=== PATIENT | female | born 1955 | race American Indian/Alaskan Native ===

== ENCOUNTER 2016-11-02 13:19 | Outpatient (CLI) | payer MEDICARE, MEDICAID ==
--- NOTE | 2016-11-03 11:17 | Mammography Report ---
RIGHT DIGITAL DIAGNOSTIC MAMMOGRAM and RIGHT BREAST ULTRASOUND: 11/02/16 13:19:00 CLINICAL: Recalled for asymmetry. COMPARISON:09/21/16 screening FINDINGS: Lateralmedial and spot compression MLO and CC views were performed. Partial effacement of the previously described upper asymmetry. A portion of it is more pronounced with a partially circumscribed margin on the lateral view. Ultrasound of the right breast (including all four quadrants and the retroareolar area) was performed. Island of benign fibroglandular structures correlate with the mammographic asymmetries. No mass or shadowing. IMPRESSION: Probably benign asymmetric right fibroglandular structures. BI-RADS CATEGORY: 3 - - Probably Benign RECOMMENDATION: Six month followup right mammogram. ACR BI-RADS MAMMOGRAPHIC CODES: 0 = Needs additional imaging evaluation; 1 = Negative; 2 = Benign; 3 = Probably benign; 4 = Suspicious; 5 = Malignant; 6 = Known biopsy-proven malignancy COMMENT: 1. Dense breast tissue, i.e., adenosis, fibrocystic changes, etc., may obscure an underlying neoplasm. 2. Approximately 10% of cancers are not detected with mammography. 3. A negative mammography report should not delay biopsy if a clinically suspicious mass is present. COMMENT: Patient follow-up letters are generated via our [employer] application.
== END 2016-11-02 13:20 | disposition home or self-care (01) ==
LOC: MAMMO 13:19
PROVIDERS: ATTEND Hospitalist
DX: N64.89 Other specified disorders of breast (principal); R92.8 Other abnormal and inconclusive findings on diagnostic imaging of breast
CPT/HCPCS: 76641; G0206

== ENCOUNTER 2018-02-20 14:33 | Emergency (ER) | payer MEDICARE ==
--- NOTE | 2018-02-20 17:09 | Emergency Department Report ---
ED Fall HPI - General Chief Complaint: Fall Stated Complaint: SHOULDER/HIP PAIN POST FALL Time Seen by Provider: 02/20/18 17:04 Source: patient Mode of arrival: Ambulatory - History of Present Illness Initial Comments: 62-year-old [place] female reports to the emergency room that she had a fall down basement steps which includes 7 stairs. Patient reports that this happened this morning. She complains of left shoulder and left hip pain and back pain. Patient denies hitting her head no loss of consciousness able to ambulate feels that her gait is off. Patient has a past medical history of breast cancer currently taking tamoxifen, hypertension, hyperlipidemia and genital herpes. Patient reports she's had a hysterectomy and appendectomy. Patient has taken no pain medication prior to arrival. MD Complaint: fall -: This afternoon Fall From: down stairs (#) (7) When Fall Occurred: 4-6 hours [employer] Fall Witnessed: no Place Fall Occurred: home Loss of Consciousness: none Prolonged Down Time?: no Symptoms Prior to Fall: none Location - Extremities: Left: Shoulder, Thigh (his pain) Severity: moderate Severity scale (0 -10): 7 Quality: aching Associated Symptoms: denies - Related Data Allergies Allergy/AdvReac Type Severity Reaction Status Date / Time codeine Allergy Swelling Unverified 09/21/16 08:41 ED Review of Systems ROS: Stated complaint: SHOULDER/HIP PAIN POST FALL Other details as noted in HPI Constitutional: denies: chills, fever Eyes: denies: eye pain, eye discharge, vision change ENT: denies: ear pain, throat pain Respiratory: denies: cough, shortness of breath, wheezing Cardiovascular: denies: chest pain, palpitations Endocrine: no symptoms reported Gastrointestinal: denies: abdominal pain, nausea, diarrhea Genitourinary: denies: urgency, dysuria, discharge Musculoskeletal: back pain, arthralgia (left hip left shoulder) Skin: denies: rash, lesions Neurological: denies: headache, weakness, paresthesias Psychiatric: denies: anxiety, depression Hematological/Lymphatic: denies: easy bleeding, easy bruising ED Past Medical Hx - Past Medical History Previous Medical History?: Yes Hx Hypertension: Yes Hx of Cancer: Yes (breast) Additional medical history: high cholesterol - Surgical History Past Surgical History?: Yes Hx Breast Surgery: Yes (lumpectomy left breast and right with right breast cancer) - Social History Smoking Status: Former Smoker Substance Use Type: Alcohol, Prescribed ED Physical Exam - General Limitations: No Limitations General appearance: alert, in no apparent distress - Head Head exam: Present: atraumatic, normocephalic - Eye Eye exam: Present: normal appearance - ENT ENT exam: Present: mucous membranes moist - Neck Neck exam: Present: normal inspection - Respiratory Respiratory exam: Present: normal lung sounds bilaterally. Absent: respiratory distress - Cardiovascular Cardiovascular Exam: Present: regular rate, normal rhythm. Absent: systolic murmur, diastolic murmur, rubs, gallop - GI/Abdominal GI/Abdominal exam: Present: soft, normal bowel sounds - Extremities Exam Extremities exam: Present: normal inspection - Expanded Lower Extremity Exam Left Hip exam: Present: full ROM Upper Leg exam: Present: normal inspection, full ROM Knee exam: Present: normal inspection, full ROM Lower Leg exam: Present: normal inspection, full ROM Ankle exam: Present: normal inspection, full ROM Foot/Toe exam: Present: normal inspection, full ROM Neuro vascular tendon exam: Present: no vascular compromise - Back Exam Back exam: Present: normal inspection - Expanded Back Exam Expanded Back exam: Sciatic Notch Tenderness: Left, Positive Straight Leg Raise: Left - Neurological Exam Neurological exam: Present: alert, oriented X3 - Psychiatric Psychiatric exam: Present: normal affect, normal mood - Skin Skin exam: Present: warm, dry, intact, normal color. Absent: rash ED Course Vital Signs 02/20/18 15:22 Temperature 98.6 F Pulse Rate 73 Respiratory 18 Rate Blood Pressure 158/94 O2 Sat by Pulse 98 Oximetry ED Medical Decision Making - Medical Decision Making Patient's been evaluated by this provider fast track. I discussed the patient we will go ahead and x-ray her left hip and pelvis. Patient has a history of breast cancers currently on tamoxifen one to be sure it is not a hairline fracture that could result to her pain. Patient reports that she did take ibuprofen at home she just wants to be sure there is nothing acutely wrong with her. Critical care attestation.: If time is entered above; I have spent that time in minutes in the direct care of this critically ill patient, excluding procedure time. ED Disposition Clinical Impression: Fall (on) (from) other stairs and steps, initial encounter, Pain, arm, left Back pain, acute Qualifiers: Back pain location: low back pain Back pain laterality: left Sciatica presence : without sciatica Qualified Code(s): M54.5 - Low back pain Disposition: DC-01 TO HOME OR SELFCARE Is pt being admited?: No Does the pt Need Aspirin: No Condition: Stable Instructions: Fall Prevention (ED), Fall Prevention for Older Adults (ED), Acute Low Back Pain (ED) Additional Instructions: Please take Motrin you have at home for pain. All x-rays were negative. Symptoms persist or gets worse please follow-up by her primary care provider. Referrals: PRIMARY CARE, [Primary Care Provider] - 3-5 Days Forms: Work/School Release Form(ED)
--- NOTE | 2018-02-20 18:51 | XRay Report ---
FINAL REPORT EXAM: XR PELVIS 1-2V HISTORY: fall lower back and hip pain TECHNIQUE: AP pelvis PRIORS: None. FINDINGS: No acute fractures are identified. The pubic symphysis and SI joints are intact. No evidence of hip fracture or dislocation. No bony lesions are identified. IMPRESSION: Negative no acute abnormalities seen
--- NOTE | 2018-02-20 19:38 | XRay Report ---
FINAL REPORT EXAM: XR SPINE LUMBOSACRAL 2-3V HISTORY: fall with left lower back pain TECHNIQUE: Lumbar spine 3 views PRIORS: None. FINDINGS: Vertebral bodies demonstrate normal height and alignment. The disc spaces are within normal limits. There is no evidence of spondylolisthesis. Transverse and spinous processes are intact SI joints are unremarkable. IMPRESSION: Negative lumbar spine series
[2018-02-20 20:51] VITALS: BP 146/107
== END 2018-02-20 19:52 | disposition home or self-care (01) ==
LOC: ED 14:33
DX: M54.5 Low back pain (principal); I10 Essential (primary) hypertension; E78.00 Pure hypercholesterolemia, unspecified; Z87.891 Personal history of nicotine dependence; Z88.5 Allergy status to narcotic agent; Z90.49 Acquired absence of other specified parts of digestive tract; Z90.710 Acquired absence of both cervix and uterus; W10.8XXA Fall (on) (from) other stairs and steps, initial encounter; Y93.89 Activity, other specified; Y92.89 Other specified places as the place of occurrence of the external cause; Y99.8 Other external cause status
CPT/HCPCS: 72100; 72170; 99283